=== PATIENT | female | born 1985 | race Caucasian/White ===

== ENCOUNTER 2017-04-04 14:40 | Inpatient (IN) | payer BC ==
[~2017-04-04] VITALS: Ht 167.6 cm; Wt 67.7 kg
[2017-04-04] VITALS (21 sets, daily range): BP systolic 101–148; BP diastolic 59–87; PULSE 69–102; TEMP 98.3–98.6
[~2017-04-04 14:40] MED LIST: ALEVE 220MG220 MG PO; BACTRIM DS 8001 TAB PO; BENADRYL25 M2; CLARITIN 1010 MG/TAB PO; CLEOCIN HC150 MG/CAP PO; DROSPIRENONE PO; MOTRIN 600600 MG/TAB PO; NO HOME MEDICATIONS; PERCOCET 325 MG1 TA2 PO; PRENATAL1 TA7 PO
[2017-04-04] MEDS ORDERED: VTAMINC250TA (15:12)
[2017-04-04 15:37] LABS: BASO # 0.1 (0.0-0.2); BASO % 0.4 % (0.0-2.0); EOS % 0.2 % (0-4.0); GRAN # 10.2 (1.4-6.5); GRAN % 80.4 % (42.2-75.2); HEMATOCRIT 37.9 % (37.0-47.0); HEMOGLOBIN 12.8 g/dl (12.5-16.0); LYMPH # 1.7 (1.2-3.4); LYMPH % 13.4 % (20.0-51.0); MEAN CELL VOLUME 89 fl (80.0-100.0); MEAN CORPUSCULAR HEMOGLOBIN 30 pg (27.0-31.0); MEAN CORPUSCULAR HGB CONC 34 g/dl (33.0-37.0); MEAN PLATELET VOLUME 11.3 fl (7.4-10.4); MONO # 0.6 (0.1-0.6); MONO % 4.3 % (1.7-9.3); PLATELET COUNT 203 K/mm3 (130-400); RED BLOOD COUNT 4.28 M/mm3 (4.10-5.30); REDCELL DISTRIBUTION WIDTH-CV 13.1 % (11.5-14.5); WHITE BLOOD COUNT 12.7 K/mm3 (4.8-10.8)
[2017-04-05 07:10] VITALS: BP 106/66; PULSE 69; TEMP 98.3
[2017-04-05] MEDS ORDERED: IBU600 MG PO (09:11)
[2017-04-05] MEDS ORDERED: PERCOCET 325 MG1 TA2 PO (09:11)
[2017-04-05 13:30] VITALS: BP 102/65; PULSE 76; TEMP 98.2
[2017-04-05 16:00] VITALS: BP 113/76; PULSE 100; TEMP 97.6
[2017-04-05 19:15] VITALS: BP 116/74; PULSE 72; TEMP 97.5
[2017-04-06 07:34] VITALS: BP 100/67; PULSE 86
== END 2017-04-06 12:15 | disposition home or self-care (01) | DRG 775 ==
LOC: LDRO 14:40 → LDR 15:00 → OB 15:00
PROVIDERS: Obstetrics & Gynecology
PROC: 10E0XZZ Delivery of Products of Conception, External Approach (ICD-10-PCS; principal; 2017-04-04)
DX: O42.02 Full-term premature rupture of membranes, onset of labor within 24 hours of rupture (principal); O69.81X0 Labor and delivery complicated by cord around neck, without compression, not applicable or unspecified; Z3A.37 37 weeks gestation of pregnancy; Z37.0 Single live birth
CPT/HCPCS: J2590; J7120

== ENCOUNTER 2019-03-11 07:16 | Inpatient (IN) | payer BC ==
[~2019-03-11] VITALS: Ht 167.6 cm; Wt 65.9 kg
[2019-03-11] VITALS (35 sets, daily range): BP systolic 15–135; BP diastolic 60–91; PULSE 59–103; TEMP 97.3–98.6
[~2019-03-11 07:16] MED LIST changes: +IBU600 MG PO; +VTAMINC250TA
--- NOTE | 2019-03-11 07:30 | NUR ---
Pt arrives on unit ambulatory with spouse for induction of labor. G6L4 at 39.3 weeks gestation. Changed into clean gown. EFM and toco applied. VSS. Denies regular ctx, LOF, and vaginal bleeding. Reports GFM. IV started in LW. Labs drawn. LR infusing. Admission assessment completed. Consents signed. Pt oriented to room. Updated on POC. No questions or concerns at this time.
[2019-03-11] MEDS ORDERED: PROFERRIN ES12 MG PO (07:45)
[2019-03-11] MEDS ORDERED: PLAQUENIL 200M200 MG PO ×2 (07:45→07:46)
[2019-03-11 08:31] LABS: HEMOGLOBIN 11.7 g/dl (12.5-16.0); MEAN CELL VOLUME 87 fl (80.0-100.0); MEAN CORPUSCULAR HEMOGLOBIN 28 pg (27.0-31.0); MEAN CORPUSCULAR HGB CONC 32 g/dl (33.0-37.0); MEAN PLATELET VOLUME 11.5 fl (7.4-10.4); PLATELET COUNT 188 K/mm3 (130-400); RED BLOOD COUNT 4.17 M/mm3 (4.10-5.30); REDCELL DISTRIBUTION WIDTH-CV 13.2 % (11.5-14.5)
[2019-03-11 08:40] LABS: HEMATOCRIT 36.3 % (37.0-47.0)
[2019-03-11 08:49] LABS: LYMPHOCYTE 26 % (20.0-51.0); NEUTROPHILS 65 % (42.0-75.2); PLATELET ESTIMATE NORMAL (NORMAL)
--- NOTE | 2019-03-11 13:15 | NUR ---
Pt requesting epidural. Gerson Lee CRNA notified. Pt sitting upright. LR bolus infusing 1321-Single shot administered by Gerson Lee CRNA. No adverse effects noted. See anesthesia record. 1325-Pt repositioned WL. Updated on POC. Safety reviewed. No questions or concerns at this time.
--- NOTE | 2019-03-11 14:25 | NUR ---
Dr. Coello at bedside. Pt prepped for delivery. Begins pushing with pt. Moves vertex well. 1432-SVE of viable male attended by Dr. Coello. Nuchal cord x1. Cut on perineum. dried and placed on mother's abdomen. Apgars 8/9. Care of infant to Nikolas Koroma RN. 1434- of placenta. Fundus firm at umbilicus. Bleeding WNL. Pitocin bolus infusing. Perineum intact. Pericare performed. Pt updated on POC. No questions or concerns at this time.
[2019-03-12 01:25] VITALS: BP 90/63; PULSE 90; TEMP 98.5
[2019-03-12 04:25] VITALS: BP 97/82; PULSE 88; TEMP 98.3
[2019-03-12 08:53] VITALS: BP 108/64; PULSE 86
[2019-03-12] MEDS ORDERED: MOTRIN 600600 MG/TAB PO (08:53)
--- NOTE | 2019-03-12 10:08 | NUR ---
Initial visit; Parents thanked Machine Presser for offering congratulations and God's blessings for the of their son. Machine Presser thanked family for choosing [facility].
== END 2019-03-12 15:19 | disposition home or self-care (01) | DRG 807 ==
LOC: OB 07:16 → LDR 07:16 → OB 17:00
PROVIDERS: ADMIT Obstetrics & Gynecology
PROC: 10E0XZZ Delivery of Products of Conception, External Approach (ICD-10-PCS; principal; 2019-03-11)
PROC: 10907ZC Drainage of Amniotic Fluid, Therapeutic from Products of Conception, Via Natural or Artificial Opening (ICD-10-PCS; 2019-03-11)
PROC: 3E033VJ Introduction of Other Hormone into Peripheral Vein, Percutaneous Approach (ICD-10-PCS; 2019-03-11)
DX: O36.5930 Maternal care for other known or suspected poor fetal growth, third trimester, not applicable or unspecified (principal); Z37.0 Single live birth; O75.89 Other specified complications of labor and delivery; M06.9 Rheumatoid arthritis, unspecified; O69.81X0 Labor and delivery complicated by cord around neck, without compression, not applicable or unspecified; Z3A.39 39 weeks gestation of pregnancy
CPT/HCPCS: J2540; J2590; J2795; J7120

== ENCOUNTER → 2019-03-19 | Outpatient (CLI) | payer BC ==
[~2019-03-19] MED LIST changes: +PLAQUENIL 200M200 MG PO; +PROFERRIN ES12 MG PO
--- NOTE | 2019-03-20 08:27 | NUR ---
Pt, Chanelle Mccoyon, presents to walk-in clinic on 03/19/19 with 8 day old baby boy, Fernando Velasquez, because she is have sore nipples and he is not latching properly. Fernando was born [birth year] and is pt's fifth baby. She has successfully breastfed her previous children. weight was 6#14.8oz (3140 gms). Pt has been offering the breast but because of the pain she is primarily pumping and bottle feedng. Fernando drinks about 2oz per feeding and his weight today is 6#12.8oz (3086 gms). Voids, stools and milk supply have been reported to be WNL. Pt has started to use Jernigan's Nipple Cream and reports she is already feeling relief from it's use. At this evaluation Fernando is observed latching shallow, not opening his jaw well. LC observes that Fernando does not relax his jaw much or open widely. Eventually LC able to assist jaw opening to get appropriate latch and pt denies pain. Pt also voiced concern about possible tongue tie, this LC is able to palpate sublingual frenulum with finger sweep inside lower jaw, possibly restricting movement, but once the jaw opened and he latched comfortably suspect this not likely to be the cause of pain. After nursing one breast Fernando had a weight gain of 2.1oz. He had no interest in nursing second side. POC: Pt advised to find information or providers of infant massage that may help with the jaw tightness. Continue working with jaw opening with latch, and discussed ways to work on tongue extension that may help with jaw opening, allowing deeper latch. F/U: Clinic as desired. Questions invited and answered.
== END ==
LOC: LAC 10:29
DX: Z39.1 Encounter for care and examination of lactating mother (principal); Z71.89 Other specified counseling

== ENCOUNTER → 2019-03-26 | Outpatient (CLI) | payer BC ==
--- NOTE | 2019-03-26 12:09 | NUR ---
Pt, Chanelle Velasquez, presents to walk-in clinic with 15 day old baby boy, Fernando Velasquez for a weight check and to follow up from last weeks c/o sore nipples. Fernando was born on [birth year] and weighed 6#14.8oz. Last week he weighed 6#12.8oz. Latch was reviewed and ideas to help Fernando get his jaw open wider for latching helped at that visit. Today Fernando weighs 7#2.4oz. for a gain of 5.6oz in one week. Because he woke for the weight check, Chanelle places him to the left breast and states that almost all pain is gone with feeds. She does have to help him with the jaw staying open for latch, but once there feedings are good. After nursing for a few minutes Fernando had a weight gain of 2oz. POC: Continue assisting with jaw opening for latches. F/U; walk in clinic as desired. Questions invited and answered.
== END ==
LOC: LAC 11:09
DX: Z39.1 Encounter for care and examination of lactating mother (principal); Z71.89 Other specified counseling